=== PATIENT | male | born 1990 | race Caucasian/White ===

== ENCOUNTER 2019-04-02 04:44 | Emergency (ER) | payer OTHER ==
[~2019-04-02] VITALS: Ht 182.9 cm; Wt 92.3 kg
[2019-04-02] MEDS ORDERED: LORAZEPAM 2MG/ML CPJ IV ONE (05:45)
[2019-04-02] MEDS ORDERED: SODIUM CHLORIDE 0.9% 1,000 ML IV ONE ×3 (05:45→09:30)
[2019-04-02] MEDS ORDERED: LORAZEPAM 2MG/ML CPJ IV STA (07:45)
[2019-04-02 08:57] LABS: CHLORIDE 98 mEq/L (98-107)
[2019-04-02 09:03] LABS: BASOPHILS % 0.7 % (0.0-2.0); EOSINOPHILS % 1.2 % (0.0-5.0); HEMATOCRIT. 51.7 % (42.0-52.0); HEMOGLOBIN. 18.1 g/dL (14.0-18.0); LYMPHOCYTES % 39.7 % (20.0-50.0); MEAN CORPUSCULAR HEMOGLOBIN 28.1 pg (28.0-32.0); MEAN CORPUSCULAR VOLUME 80.2 fL (80.0-94.0); MEAN PLATELET VOLUME 7.6 fl (7.4-10.4); NEUTROPHILS % 54.4 % (40.0-76.0); PLATELET 220 x1000/uL (130-400); RED BLOOD CELL COUNT 6.44 mill/uL (4.7-6.1); RED CELL DISTRIBUTION WIDTH 13.3 % (11.6-14.6)
[2019-04-02 09:06] LABS: CREATINE KINASE 158 IU/L (39-308)
[2019-04-02 09:16] LABS: ETHANOL BLOOD 324 mg/dL
[2019-04-02 09:27] LABS: CLARITY URINE CLEAR (CLEAR); COLOR URINE DARK YELLOW (YELLOW); KETONES URINE TRACE (NEGATIVE); LEUKOCYTE ESTERASE URINE NEGATIVE (NEGATIVE); NITRITE URINE NEGATIVE (NEGATIVE); OCCULT BLOOD URINE NEGATIVE (NEGATIVE); PH URINE 5.5 (4.5-8.0); PROTEIN URINE 2+ (NEGATIVE); SPECIFIC GRAVITY URINE 1.028 (1.005-1.030)
[2019-04-02] MEDS ORDERED: CHLORDIAZEPOXIDE 25MG CAPSULE PO ONE (09:30)
[2019-04-02 09:48] LABS: INR 1.1; PROTHROMBIN TIME 10.8 sec (9.6-11.0)
[2019-04-02 09:55] LABS: *AMPHETAMINES SCREEN URINE NEGATIVE (NEGATIVE); *BARBITURATES SCREEN URINE NEGATIVE (NEGATIVE); *BENZODIAZEPINES SCREEN URINE NEGATIVE (NEGATIVE); *COCAINE SCREEN URINE NEGATIVE (NEGATIVE); CANNABINOID URINE SCREEN NEGATIVE (NEGATIVE)
[2019-04-02 09:56] LABS: METHADONE URINE SCREEN NEGATIVE (NEGATIVE); OPIATES URINE SCREEN NEGATIVE (NEGATIVE); PHENCYCLIDINE URINE SCREEN NEGATIVE (NEGATIVE)
[2019-04-02 11:46] VITALS: BP 129/75
== END 2019-04-02 11:42 | disposition short-term general hospital (02) ==
LOC: ER 04:44
DX: F10.239 Alcohol dependence with withdrawal, unspecified (principal); Y90.8 Blood alcohol level of 240 mg/100 ml or more; R00.0 Tachycardia, unspecified
CPT/HCPCS: 36415; 80053; 80305; 80307; 80320; 80329; 81003; 82550; 83690; 84443; 85025; 85610; 96374; 96376; 99285; J2060; J7030; Z7610; G0480